=== PATIENT | female | born 1970 ===

== ENCOUNTER 2016-06-10 14:46 | Emergency (ER) | payer BC ==
[2016-06-10 15:32] VITALS: BP 102/68
--- NOTE | 2016-06-10 15:52 | UC ---
Skin Complaint HPI - HPI Summary HPI Summary: 45 y/o female c/o of redness and itching diffusely located across the chest. Itching began yesterday after walking in [place]. Patient noticed a tick crawling on her chest, did not attach before the patient was able to remove, but patient has been rubbing the chest since the incident stating, "It feels itchy". Denies fatigue, headache, joint pain, finding a tick attached, or bulls eye rash. - History of Current Complaint Chief Complaint: UCSkin Time Seen by Provider: 06/10/16 15:33 Stated Complaint: tick bite Hx Obtained From: Patient Hx Last Menstrual Period: 11/20/13 ?: No Location: Diffuse Character: Redness - Across the chest Aggravating: Nothing Alleviating: Nothing Associated Signs & Symptoms: Positive: Negative - Allergy/Home Medications Allergies/Adverse Reactions: Allergies Allergy/AdvReac Type Severity Reaction Status Date / Time Penicillins Allergy Hives Verified 03/23/15 09:51 Review of Systems Constitutional: Negative Skin: Other - Slightly pinkened irritated skin across the chest, no hives present Eyes: Negative ENT: Negative Respiratory: Negative Cardiovascular: Negative Gastrointestinal: Negative Genitourinary: Negative Motor: Negative Neurovascular: Negative Musculoskeletal: Negative Neurological: Negative Psychological: Negative All Other Systems Reviewed And Are Negative: Yes PMH/Surg Hx/FS Hx/Imm Hx Previously Healthy: Yes Endocrine History Of: Denies: Diabetes, Thyroid Disease Cardiovascular History Of: Denies: Cardiac Disorders, Hypertension Respiratory History Of: Denies: COPD, Asthma GI/ History Of: Denies: Ulcer Psychological History Of: Denies: Anxiety, Depression - Surgical History Surgical History: Yes Surgery Procedure, Year, and Place: tonsillectomy - Family History Known Family History: Positive: None - Social History Occupation: Employed Full-time Alcohol Use: None Substance Use Type: None Smoking Status (MU): Never Smoked Tobacco Physical Exam Triage Information Reviewed: Yes Appearance: Well-Appearing, No Pain Distress, Well-Nourished Vital Signs: Initial Vital Signs Pulse 82 06/10/16 15:26 Resp 16 06/10/16 15:26 BP 102/68 06/10/16 15:26 Pulse Ox 98 06/10/16 15:26 Vital Signs Reviewed: Yes Eye Exam: Normal Eyes: Positive: Conjunctiva Clear ENT Exam: Normal ENT: Positive: Normal ENT inspection, Hearing grossly normal, Pharynx normal, TMs normal Dental Exam: Normal Neck exam: Normal Neck: Positive: Supple, Nontender, No Lymphadenopathy Respiratory Exam: Normal Respiratory: Positive: Chest non-tender, Lungs clear, Normal breath sounds, No respiratory distress, No accessory muscle use Cardiovascular Exam: Normal Cardiovascular: Positive: RRR, No Murmur, Pulses Normal Abdominal Exam: Normal Abdomen Description: Positive: Nontender, No Organomegaly, Soft Bowel Sounds: Positive: Present Musculoskeletal Exam: Normal Musculoskeletal: Positive: Strength Intact, ROM Intact Neurological Exam: Normal Neurological: Positive: Alert Psychological Exam: Normal Skin Exam: Normal Course/Dx - Diagnoses Provider Diagnoses: concern about tick exposure. Contact dermatitis Discharge - Discharge Plan Condition: Stable Disposition: HOME Patient Education Materials: Tick Bite (ED), Contact Dermatitis (ED) Referrals: Rosa Haddad MD [Primary Care Provider] - If Needed Additional Instructions: As discussed, follow up for developing symptoms of possible lyme. Use topical cortisone or oral antihistamines.
== END 2016-06-10 16:10 | disposition home or self-care (01) ==
LOC: UCEAST 14:46
DX: L25.9 Unspecified contact dermatitis, unspecified cause (principal); Z88.0 Allergy status to penicillin
CPT/HCPCS: 99211; G0463